=== PATIENT | male | born 1980 | race Hispanic/Latino ===

== ENCOUNTER 2017-02-13 05:58 | Emergency (ER) | payer OTHER ==
[2017-02-13 06:19] VITALS: TEMP 98
--- NOTE | 2017-02-13 06:25 | ED.PDOC ---
History of Present Illness - General Source: patient Exam Limitations: no limitations - History of Present Illness Initial Comments: Donovan Lerma 36 y/o male had nausea,vomiting,diarrhea at about 2200H last night stating ate eggs,sausage 2 hours before getting sick.No exposure to illness. Timing/Duration: 4-6 hours Severity: moderate Improving Factors: rest Worsening Factors: eating Associated Symptoms: loss of appetite, nausea/vomiting <William Duenas - Last Filed: 02/13/17 07:05> <Lebron Chin - Last Filed: 02/13/17 08:00> - General Chief Complaint: GI Problem Stated Complaint: Nausea/vomiting/diarrhea Time Seen by Provider: 02/13/17 06:25 - History of Present Illness Allergies/Adverse Reactions: Allergies NO KNOWN ALLERGY Allergy (Unverified 03/27/15 07:35) Home Medications: Ambulatory Orders Ondansetron HCl [Zofran] 4 mg PO Q6HR #14 tab 02/13/17 Review of Systems - Review of Systems Constitutional: States: no symptoms reported EENTM: States: no symptoms reported Respiratory: States: no symptoms reported Cardiology: States: no symptoms reported Gastrointestinal/Abdominal: States: see HPI Genitourinary: States: no symptoms reported Musculoskeletal: States: no symptoms reported Skin: States: no symptoms reported Neurological: States: no symptoms reported Endocrine: States: no symptoms reported Hematologic/Lymphatic: States: no symptoms reported <William Duenas - Last Filed: 02/13/17 07:05> Past Medical History (General) - Patient Medical History Hx Seizures: No Hx Stroke: No Hx Dementia: No Hx Asthma: No Hx of COPD: No Hx Cardiac Disorders: No Hx Congestive Heart Failure: No Hx Pacemaker: No Hx Hypertension: No Hx Thyroid Disease: No Hx Diabetes: No Hx Gastroesophageal Reflux: No Hx Renal Disease: No Hx Cancer: No Hx of HIV: No Hx Hepatitis C: No Hx MRSA: No Surgical History: other - 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 - Vaccination History Hx Tetanus, Diphtheria Vaccination: Yes Hx Influenza Vaccination: Yes Hx Pneumococcal Vaccination: No - Social History Hx Tobacco Use: No Hx Alcohol Use: Yes - rarely Hx Substance Use: No Hx Substance Use Treatment: No Hx Depression: No Hx Physical Abuse: No Hx Emotional Abuse: No Hx Suspected Abuse: No - Activities of Daily Living Patient Lives Alone: Yes - Female History Patient is a Female of Child Bearing Age (10 -59 yrs old): No <William Duenas R - Last Filed: 02/13/17 07:05> Family Medical History - Family History Grandparents Hx Family Hypertension: Yes - dad Hx Family Diabetes: Yes - dad Mother Living Status: Still Living <William Duenas R - Last Filed: 02/13/17 07:05> Physical Exam - Physical Exam General Appearance: Alert, Anxious, No apparent distress Eye Exam: bilateral normal Ears, Nose, Throat: hearing grossly normal, normal ENT inspection, normal pharynx Neck: non-tender, full range of motion, supple, normal inspection Respiratory: chest non-tender, lungs clear, normal breath sounds Cardiovascular/Chest: normal peripheral pulses, regular rate, rhythm, no murmur Peripheral Pulses: radial,right: 2+, radial,left: 2+ Gastrointestinal/Abdominal: normal bowel sounds, non tender, soft Back Exam: normal inspection, no CVA tenderness, no vertebral tenderness Extremity: normal range of motion, non-tender, normal inspection, no calf tenderness Neurologic: no motor/sensory deficits, alert, normal mood/affect, oriented x 3 Skin Exam: normal color, warm/dry <William Duenas R - Last Filed: 02/13/17 07:05> Progress - Results/Orders Results/Orders: 02/13/17 06:27 URINALYSIS Stat 02/13/17 06:39 Lactated Ringers [Lr] 1,000 ml IVS ONCE Laboratory Results WBC 8.1 K/mm3 (4.8-10.8) 02/13/17 06:35 RBC 4.64 M/mm3 (4.70-6.10) L 02/13/17 06:35 Hgb 14.4 gm/dL (14.0-18.0) 02/13/17 06:35 Hct 42.1 % (42.0-52.0) 02/13/17 06:35 MCV 90.6 fl (80.0-94.0) 02/13/17 06:35 MCH 31.0 pg (27.0-31.0) 02/13/17 06:35 MCHC 34.2 g/dL (33.0-37.0) 02/13/17 06:35 RDW 13.7 % (11.5-14.5) 02/13/17 06:35 Plt Count 207 K/mm3 (130-400) 02/13/17 06:35 MPV 7.6 fl (7.40-10.4) 02/13/17 06:35 Absolute Neuts (auto) 7.20 K/uL (1.8-6.8) H 02/13/17 06:35 Absolute Lymphs (auto) 0.50 K/uL (1.0-3.4) L 02/13/17 06:35 Absolute Monos (auto) 0.30 K/uL (0.2-0.8) 02/13/17 06:35 Absolute Eos (auto) 0.00 K/uL (0.0-0.4) 02/13/17 06:35 Absolute Basos (auto) 0.00 K/uL (0.0-0.1) 02/13/17 06:35 Neutrophils % 89.2 % (42.0-78.0) H 02/13/17 06:35 Lymphocytes % 6.3 % (20.0-50.0) L 02/13/17 06:35 Monocytes % 3.9 % (2.0-9.0) 02/13/17 06:35 Eosinophils % 0.4 % (1.0-5.0) L 02/13/17 06:35 Basophils % 0.2 % (0.0-2.0) 02/13/17 06:35 Sodium 139 mmol/L (135-145) 02/13/17 06:35 Potassium 4.2 mmol/L (3.6-5.0) 02/13/17 06:35 Chloride 104 mmol/L (101-111) 02/13/17 06:35 Carbon Dioxide 27 mmol/L (21-31) 02/13/17 06:35 Anion Gap 12.2 (12-18) 02/13/17 06:35 BUN 20 mg/dL (7-18) H 02/13/17 06:35 Creatinine 0.93 mg/dL (0.6-1.3) 02/13/17 06:35 BUN/Creatinine Ratio 21.5 (10-20) H 02/13/17 06:35 Random Glucose 134 mg/dL (70-105) H 02/13/17 06:35 Serum Osmolality 282.1 mOsm/L (275-295) 02/13/17 06:35 Calcium 9.2 mg/dL (8.4-10.2) 02/13/17 06:35 Lipase 34 U/L (22-51) 02/13/17 06:35 <William Duenas - Last Filed: 02/13/17 07:05> Departure <William Duenas - Last Filed: 02/13/17 07:05> - Departure Diet: resume usual diet Activity: increase activity as tolerated <Lebron Chin - Last Filed: 02/13/17 08:00> - Departure Clinical Impression: Gastroenteritis Disposition: Discharge to Home or Self Care Condition: Good Departure Forms: ED Discharge - Pt. Copy, Patient Portal Self Enrollment Referrals: Roman Hooper MD [Primary Care Provider] - 1-2 Weeks Prescriptions: Ondansetron HCl [Zofran] 4 mg PO Q6HR #14 tab Home Medications: Ambulatory Orders Ondansetron HCl [Zofran] 4 mg PO Q6HR #14 tab 02/13/17 Additional Instructions: Increase oral fluids. Return to your regular doctor or the E.R. if symptoms have not resolved in 48 hours.
[2017-02-13] MEDS ORDERED: ONDANSETRON INJ 4 MG/2 ML VIAL IV ONE (06:27)
[2017-02-13] MEDS ORDERED: LACTATED RINGERS 1,000 ML IVS ONE (06:39)
[2017-02-13] MEDS ORDERED: LACTATED RINGERS 1,000 ML ONE (06:39)
[2017-02-13 07:24] VITALS: BP 116/72
[2017-02-13 08:28] VITALS: O2SAT 98
== END 2017-02-13 08:28 | disposition home or self-care (01) ==
LOC: ER 05:58
DX: K52.9 Noninfective gastroenteritis and colitis, unspecified (principal)